=== PATIENT | male | born 1975 | race Caucasian/White ===

== ENCOUNTER 2019-10-11 10:35 | Outpatient (CLI) | payer BC ==
--- NOTE | 2019-10-11 11:14 | RAD ---
XR Chest Pa Lat STANDARD HISTORY: Cough, difficulty breathing COMPARISON: 04/27/2012 FINDINGS: The heart size is normal. The lungs are well expanded without focal areas of consolidation, pneumothorax or pleural effusions. IMPRESSION: No radiographic evidence of acute cardiopulmonary process.
== END 2019-10-11 10:36 | disposition home or self-care (01) ==
LOC: BICRAD 10:35
PROVIDERS: ATTEND Internal Medicine Infectious Disease
DX: R05 Cough (principal)
CPT/HCPCS: 71046

== ENCOUNTER 2024-11-01 07:33 | Outpatient (CLI) | payer BC ==
[2024-11-01] MEDS ORDERED: Iopamidol 370 76% 100 ML VIAL ONE (10:57)
== END 2024-11-01 07:34 | disposition home or self-care (01) ==
LOC: CT 07:33
PROVIDERS: ATTEND Physician Assistant Medical
DX: K59.00 Constipation, unspecified (principal); R10.13 Epigastric pain; R68.81 Early satiety; R63.4 Abnormal weight loss; K82.0 Obstruction of gallbladder; N20.0 Calculus of kidney
CPT/HCPCS: 74177